=== PATIENT | male | born 1990 ===

== ENCOUNTER 2017-05-13 12:04 | Emergency (ER) | payer SELFPAY ==
[2017-05-13 12:20] VITALS: PULSE 70
[2017-05-13] MEDS ORDERED: Lidocaine 1% Inj (20ml) INFIL STA (13:16)
[2017-05-13] MEDS ORDERED: Lidocaine 2% Inj (20ml) ONE (13:20)
[2017-05-13] MEDS ORDERED: Bacitracin 500 Units/gm Oint Foilpak UD TOP ONE (13:59)
[2017-05-13] MEDS ORDERED: Bacitracin 500 Units/gm Oint Foilpak UD ONE ×2 (14:02→14:18)
--- NOTE | 2017-05-13 14:11 | C.PDOC ---
History Of Present Illness 26 y/o male presents to the ER for evaluation of a puncture wound to the left distal third finger with a sharp knife.Patient denies any fall and injuries. Patient does not have any other complaints. Time Seen by Provider: 05/13/17 13:00 Chief Complaint (Nursing): Abnormal Skin Integrity History Per: Patient History/Exam Limitations: no limitations Onset/Duration Of Symptoms: Hrs Current Symptoms Are (Timing): Still Present Severity: Moderate Past Medical History Reviewed: Historical Data, Nursing Documentation, Vital Signs Vital Signs: Last Vital Signs Temp 98.4 F 05/13/17 14:22 Pulse 70 05/13/17 14:22 Resp 20 05/13/17 14:22 BP 147/71 05/13/17 14:22 Pulse Ox 98 05/13/17 16:04 - Medical History PMH: No Chronic Diseases Surgical History: No Surg Hx Family History: States: No Known Family Hx - Social History Hx Alcohol Use: No Hx Substance Use: No - Immunization History Hx Tetanus Toxoid Vaccination: No Hx Influenza Vaccination: No Hx Pneumococcal Vaccination: No Review Of Systems Except As Marked, All Systems Reviewed And Found Negative. Musculoskeletal: Positive for: Hand Pain (left 3rd digit finger pain) Neurological: Negative for: Weakness, Numbness Physical Exam - Physical Exam Appears: Non-toxic, No Acute Distress Skin: Normal Color, Warm Head: Atraumatic, Normacephalic Eye(s): bilateral: Normal Inspection, PERRL Nose: Normal Oral Mucosa: Moist Neck: Supple Chest: Symmetrical Cardiovascular: Rhythm Regular Respiratory: Normal Breath Sounds, No Accessory Muscle Use, No Rales, No Rhonchi , No Wheezing Extremity: Normal ROM, Other (1 cm laceration on the medial and lateral aspect of distal 3rd finger of left hand) Neurological/Psych: Oriented x3, Normal Speech, Normal Cognition, Normal Motor, Normal Sensation ED Course And Treatment O2 Sat by Pulse Oximetry: 98 (RA) Pulse Ox Interpretation: Normal Progress Note: Patient given Motrin. Procedure: Wound Repair - Performed by Performed by: Attending Physician - Indications Indication(s):: Laceration - Location Finger:: Left, Ring - Anesthetic Technique Local/Regional Anesthetic:: Lidocaine 2% - Wound repair method Sutures:: # (2), Type (4-0 Nylon) - Patient tolerated procedure Patient Tolerated Procedure:: Well Medical Decision Making Medical Decision Making: L third finger accidental puncture wound with 1 cm lateral distal 3rd finger, now s/p sutures x 2 of 4-0 nylon Disposition Doctor Will See Patient In The: Office Counseled Patient/Family Regarding: Studies Performed, Diagnosis - Disposition Referrals: [facility] [Outside] Disposition: HOME/ ROUTINE Disposition Time: 14:12 Condition: GOOD Additional Instructions: mantiene elevado y limpio Llava con agua y jabon diario (despues de 2 rainey) Bacitracin Ointment diario encima de la herida. Regressa en 7 rainey 05/20/17 para sacar los puntos (dos de 4-0 nylon) Instructions: Finger Laceration (ED) Forms: [employer] (Palauan), Work Excuse Print Language: BELARUSIAN - Clinical Impression Clinical Impression: Finger laceration - Scribe Statement The provider has reviewed the documentation as recorded by the Scribe Tara Muro Provider Attestation: All medical record entries made by the Scribe were at my direction and personally dictated by me. I have reviewed the chart and agree that the record accurately reflects my personal performance of the history, physical exam, medical decision making, and the department course for this patient. I have also personally directed, reviewed, and agree with the discharge instructions and disposition.
[2017-05-13] MEDS ORDERED: Bacitracin 500 Units/gm Oint Foilpak UD TOP STA (14:15)
[2017-05-13 14:23] VITALS: BP 147/71; RESP 20; TEMP 98.4
[2017-05-13 15:54] VITALS: O2SAT 98
== END 2017-05-13 14:23 | disposition home or self-care (01) ==
LOC: C.ER 12:04
DX: S61.213A Laceration without foreign body of left middle finger without damage to nail, initial encounter (principal); W26.0XXA Contact with knife, initial encounter

== ENCOUNTER 2017-05-20 09:33 | Emergency (ER) | payer SELFPAY ==
[2017-05-20 09:49] VITALS: RESP 16; TEMP 98.5
[2017-05-20] MEDS ORDERED: Bacitracin 500 Units/gm Oint Foilpak UD TOP ONE (11:07)
--- NOTE | 2017-05-20 11:15 | C.PDOC ---
Time Seen by Provider: 05/20/17 11:02 Chief Complaint (Nursing): Wound Check History Per: Patient Onset/Duration Of Symptoms: Days Ago (7), Laceration Current Symptoms Are (Timing): Better Location Of Injury: Left: Hand (Middle finger) Quality Of Symptoms: denies: Draining Severity: Mild Additional History Per: Prior Records Past Medical History Reviewed: Historical Data, Nursing Documentation, Vital Signs Vital Signs: Last Vital Signs Temp 98.5 F 05/20/17 09:47 Pulse 85 05/20/17 09:47 Resp 16 05/20/17 09:47 BP 146/88 05/20/17 09:47 Pulse Ox 98 05/20/17 09:47 - Medical History PMH: No Chronic Diseases Family History: States: Unknown Family Hx - Social History Hx Alcohol Use: No Hx Substance Use: No - Immunization History Hx Tetanus Toxoid Vaccination: No Hx Influenza Vaccination: No Hx Pneumococcal Vaccination: No Review Of Systems Except As Marked, All Systems Reviewed And Found Negative. Constitutional: Negative for: Fever, Weakness Neurological: Negative for: Weakness Physical Exam - Physical Exam Appears: Non-toxic, No Acute Distress Skin: Warm, Dry Head: Atraumatic Eye(s): bilateral: PERRL, EOMI Neck: Normal ROM, Supple Extremity: Normal ROM, Other (Laceration on tip of left middle finger closed with sutures, healing. No drainage. ) Pulses: Left Radial: Normal Neurological/Psych: Oriented x3, Normal Motor, Normal Sensation ED Course And Treatment O2 Sat by Pulse Oximetry: 98 Pulse Ox Interpretation: Normal Progress Note: Sutures were removed without difficulty. Reassessment Condition: Improved Disposition Counseled Patient/Family Regarding: Diagnosis, Need For Followup - Disposition Referrals: at [facility] [Outside] Disposition: HOME/ ROUTINE Disposition Time: 11:15 Condition: STABLE Additional Instructions: Follow up in the clinic. Return to the ER if you develop fever, pus drainage, worsening of symptoms or if you have any other concerns. Instructions: Stitches Removal (ED) Print Language: KINYARWANDA - Clinical Impression Clinical Impression: Encounter for removal of sutures
[2017-05-20 11:21] VITALS: BP 124/85; PULSE 81; O2SAT 99
== END 2017-05-20 11:20 | disposition home or self-care (01) ==
LOC: C.ER 09:33
DX: Z48.02 Encounter for removal of sutures (principal)